=== PATIENT | male | born 1975 | race Two or more races ===

== ENCOUNTER → 2017-04-05 | Emergency (ER) | payer BC ==
[~2017-04-05] VITALS: Ht 167.6 cm; Wt 98.4 kg
[~2017-04-05] MED LIST: IBUPROFEN600 MG ORAL
[2017-04-05 09:39] VITALS: BP 146/79
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
--- NOTE | 2017-04-05 14:46 | Diagnostic Imaging Report ---
Indication: Right shoulder pain Findings: 3 views of the right shoulder were obtained. No acute fractures, malalignment, erosions or periostitis are identified. Bone mineralization is within normal limits. Soft tissues are unremarkable. Impression: Negative examination of the shoulder.
== END | disposition home or self-care (01) ==
LOC: EMR 10:06
DX: S40.011A Contusion of right shoulder, initial encounter (principal); S20.211A Contusion of right front wall of thorax, initial encounter; V43.52XA Car driver injured in collision with other type car in traffic accident, initial encounter; Y92.410 Unspecified street and highway as the place of occurrence of the external cause
CPT/HCPCS: 99284